=== PATIENT | male | born 1980 | race African-American/Black ===

== ENCOUNTER 2017-03-13 02:02 | Emergency (ER) | payer SELFPAY ==
--- NOTE | 2017-03-13 02:29 | ED NURSING NOTES ---
Clinical Report - Nurses [place] [address] [place] [address] 03/13/2017 2:03 [id number] Triage time 02:Mar 13 2017. Acuity: LEVEL 4. Chief Complaint: (Clear to book). SEPSIS SCREEN: Sepsis Screen: negative. Negative (no infection suspected/documented). ISAI COMA SCORE: Isai Coma Scale: 15- eyes open spontaneously (4); best verbal response- oriented x 4 (5); best motor response- obeys commands (6). --02:09 Miriam Plunkett 02:05 03/13/17. BP: 134/91. HR: 87. RR: 20. O2 saturation: 96% on room air. Temp: 98.1 F (oral). Pain level now: 0/10. --02:09 Miriam Plunkett. Weight: 117.9 kg stated. Height/Length: 75 inches Per Patient. BMI: 32.5. --02:06 Miriam Plunkett. Medications None. --02:06 Miriam Plunkett. Allergies No Known Drug Allergy. --02:06 Miriam Plunkett. History Historian: patient. Arrived in police custody and accompanied by police. This started just prior to arrival. ( Patient brought in by police. Police report patient blood alcohol level requires medical evaluation.). PAST MEDICAL HX: Immunizations: up-to-date. SOCIAL HX: Light tobacco smoker (cigarette)- less than 1/2 a pack per day. Occasional alcohol use. No drug use. No infectious disease exposure. ABUSE ASSESSMENT: No report of abuse. SELF HARM ASSESSMENT: A self harm assessment was performed. The patient answered "no" to the question "Have you recently felt down, depressed, or hopeless?", "Have you noticed less interest or pleasure in doing things?", "Do you have thoughts of harming or killing yourself?", "Are you here because you tried to hurt yourself?", "Have you ever tried to hurt yourself before today?", "Have you recently had thoughts about harming or killing others?" and "Do you have any dangerous items in your possession?". FALL RISK ASSESSMENT: Fall risk assessment completed. No fall risk identified. NUTRITIONAL RISK ASSESSMENT: The nutritional risk assessment revealed no deficiencies. FUNCTIONAL ASSESSMENT: Functional assessment: no impairments noted. LEARNING NEEDS ASSESSMENT: The learning needs assessment revealed no barriers. SKIN INTEGRITY ASSESSMENT: Skin integrity risk assessment completed. No skin integrity risk identified. --02:09 Miriam Plunkett. PROBLEMS: no known problems. ADDITIONAL SURGERIES: no known surgeries. Interventions ID band on patient. To treatment room. --02:09 Miriam Plunkett. PHYSICAL ASSESSMENT Ambulatory to room. GENERAL / NEURO / PSYCH: Alert. Oriented X 4. Appears in no acute distress. HEENT: No facial asymmetry noted. Mucous membranes are pink. RESPIRATORY: Respirations not labored. CVS: Normal sinus rhythm noted. GI / : Abdomen soft and nontender and normal bowel sounds. SKIN: Skin is warm and dry. --02:10 Miriam Plunkett. NURSING PROGRESS NOTES Reassurance given to the patient. Two patient identifiers checked. Call light placed in reach. Side rails up x 1. Bed placed in lowest position. Brakes of bed on. Patient ready for evaluation- chart flagged and ED physician notified. --02:10 Miriam Plunkett. DISPOSITION / DISCHARGE Condition at departure: stable. The goals identified in the patient's plan of care were met. No learning barriers present. Discharge instructions provided and reviewed with the patient. Patient verbalized understanding. Written instructions provided in Bel[place]ian. ( Patient advised to follow up with his PCP for assessment of his blood pressure. Patient verbalized understanding. Patient left in police custody.). The patient was discharged by the physician. He was discharged to police department facility. He left the Emergency Department ambulatory and via police department vehicle. ( Provider has cleared patient for discharge). FALL RISK ASSESSMENT: Fall risk assessment completed. No fall risk identified. --02:35 Miriam Plunkett 02:33 03/13/17. BP: 140/90. --02:35 Miriam Plunkett. Locked/Released at 03/13/2017 3:44 by Miriam Plunkett,
--- NOTE | 2017-03-13 02:29 | ED CLINICAL REPORT ---
Clinical Report - Physicians/Mid Levels [facility] [address] [place] [address] 03/13/2017 2:03 Patient: FANG VELA Time Seen: 0200. Arrived- Police present. Historian- patient. HISTORY OF PRESENT ILLNESS Chief Complaint: clear to book. At its maximum, severity described as mild. When seen in the E.D., severity described as mild. Modifying factors. Not worsened by anything. Not relieved by anything. This started today. It was abrupt in onset and has been constant but is gone now or not gone now. No current or associated symptoms. (Patient reports no pain or injury at this time. Patient states that he feels well. Nose no concerns. Patient reports no injury to the head, neck, chest, pelvis, back, or other extremities.). Similar symptoms previously: None. Recent medical care: Not recently seen/assessed. REVIEW OF SYSTEMS No fever, abdominal pain, nausea, vomiting or headache. All systems otherwise negative, except as recorded above. PAST HISTORY See nurses notes. Problems: no known problems. Additional Surgeries: no known surgeries. Medications: None. Allergies: No Known Drug Allergy. SOCIAL HISTORY Smoker- current status unknown. Occasional alcohol use. No drug use. No recent travel. Is a local resident. ADDITIONAL NOTES The nursing notes have been reviewed. PHYSICAL EXAM Vital Signs: 03/13/2017 02:05 BP: 134/91. HR: 87. RR: 20. O2 saturation: 96%. Temp: 98.1 F. Pain level now: 0/10. Blood pressure normal. Oxygen saturation normal. Appearance: Alert. No acute distress. (Polite. Cooperative. Appropriate). Eyes: Pupils equal, round and reactive to light. Eyes normal inspection. No scleral icterus or pale conjunctivae. ENT: Ears normal. Nose normal. Pharynx normal. Neck: Normal inspection. Neck supple. CVS: Normal heart rate and rhythm. Heart sounds normal. Pulses normal. Respiratory: No respiratory distress. Breath sounds normal. Chest nontender. No rales, rhonchi or wheezes. Abdomen: No visible injury. Soft and nontender. Bowel sounds normal. Skin: Skin warm and dry. Normal skin color. No rash. Normal skin turgor. Extremities: Extremities exhibit normal ROM. No lower extremity edema. Neuro: Oriented X 3. No motor deficit. No sensory deficit. PROGRESS AND PROCEDURES Course of Care: the patient is a 37-year-old male presenting for evaluation of needing to be cleared to book. Patient is resting in bed in no acute distress. No pain. Patient is appropriate. Patient does not appear impaired. Patient reports no injury at this time or other concerns. Because the patient is clinically sober, do not feel patient requires further emergency department workup or evaluation. Patient is steady on his feet without assistance. Had discussion with the patient in regards his workup in the emergency department with a diagnosis, home care, follow-up, and return precautions. All questions have been answered. The patient expressed understanding of these instructions and was agreeable to them. Disposition: Discharged. Condition: good. CLINICAL IMPRESSION 03/13/2017 02:05 BP: 134/91. HR: 87. RR: 20. O2 saturation: 96%. Temp: 98.1 F. Pain level now: 0/10. Hypertensive. Oxygen saturation normal. Normal exam while in the ED. Essential hypertension. INSTRUCTIONS (patient is cleared to book from an emergency department stand point). Warnings: GENERAL WARNINGS: Return or contact your physician immediately if your condition worsens or changes unexpectedly, if not improving as expected, or if other problems arise. Specifically return if pain, vomiting, bleeding, breathing difficulty or fever. Your Current Medications: CONTINUE TAKING THE FOLLOWING MEDICATIONS: None*. Follow-up: Return to the emergency department as needed. Follow up with your doctor in three days. Reason for referral: recheck today's concerns. Summary of care provided to patient via paper. Screening today revealed the patient's blood pressure to be in the normal range. The patient should follow up with a primary care provider for blood pressure management. Understanding of the discharge instructions verbalized by patient. (Electronically signed by Power Dupree Dr. 03/13/2017 7:29)
--- NOTE | 2017-03-13 07:30 | ED MAR SUMMARY ---
..... Medication Administration Record [facility] [address] [place] [address] Patient: FANG VELA Visit ID: [id number] 37y, M Weight: 117.9 kg Height/Length: 75 in BMI: 32.5 ALLERGIES: No Known Drug Allergy
--- NOTE | 2017-03-13 07:30 | ED MED RECONCILIATION SUMMARY ---
Patient: FANG VELA Medication Reconciliation Report [facility] VisitID: [id number] [address] [place] [address] 37y, M Registration Date/Time: 03/13/2017 Weight: 117.9 kg Height/Length: 75 in. BMI: 32.5 ALLERGIES: No Known Drug Allergy The patient's Home Medications are listed below: NONE. The source(s) of the original Home Medication information: Not obtained. The following Medications were given to the patient in the Emergency Department: None. The following Medications were prescribed to the patient: None.
--- NOTE | 2017-03-13 07:30 | ED DISCHARGE INSTRUCTIONS ---
Patient: FANG VELA General Instructions [facility] VisitID: [id number] [place] [address] 37y, M Registration Date/Time: 03/13/2017 03/13/2017 02:05 BP: 134/91. HR: 87. RR: 20. O2 saturation: 96%. Temp: 98.1 F. Pain level now: 0/10. Hypertensive. Oxygen saturation normal. Normal exam while in the ED. Essential hypertension. INSTRUCTIONS (patient is cleared to book from an emergency department stand point). Warnings: GENERAL WARNINGS: Return or contact your physician immediately if your condition worsens or changes unexpectedly, if not improving as expected, or if other problems arise. Specifically return if pain, vomiting, bleeding, breathing difficulty or fever. Your Current Medications: CONTINUE TAKING THE FOLLOWING MEDICATIONS: None*. Follow-up: Return to the emergency department as needed. Follow up with your doctor in three days. Reason for referral: recheck today's concerns. Summary of care provided to patient via paper. Screening today revealed the patient's blood pressure to be in the normal range. The patient should follow up with a primary care provider for blood pressure management. Understanding of the discharge instructions verbalized by patient. ADDITIONAL INFORMATION Normal Exam [6Yr - Adult] Based on your or your child's exam today, there are no signs of illness or injury. Be assured that the symptoms that worried you are normal. They do not suggest any illness requiring testing or treatment at this time. Home Care: You (or your child) can return to normal activities and diet. If you or your child have new or unusual symptoms not already discussed today, contact the doctor. Follow Up with the doctor for the next routine appointment. For more information: For childrens health information: www.kidshealth.org For adult health information: www.[facility].org High Blood Pressure -- To Be Confirmed [No Tx] Your blood pressure was higher today than normal. Sometimes anxiety or pain can cause a temporary rise in blood pressure that later returns to normal. If your blood pressure is high on one measurement, this does not mean that you have hypertension (a chronic illness). However, you must have your blood pressure measured again within the next few days to find out if its still high. A normal blood pressure is 120/80 or less. The first (top) number is the "systolic" pressure. The second (bottom) number is the "diastolic" pressure. Hypertension exists when either the top number is 140 or higher, OR the bottom number is 90 or higher on repeated measurements. Blood pressure in the range of 120-140 (systolic) or 80-89 (diastolic) is considered "pre-hypertension". This means your are at risk for getting hypertension. You should have regular blood pressure checks to be sure your blood pressure is not rising. Home Care: Measure your blood pressure on 3 different days and write down the results. This can be done at your doctor's office or this facility. Some pharmacies and grocery stores offer automated blood pressure machines for your use. Follow Up: If your blood pressure is "high" (over 120/80) on 2 out of 3 days, you will need to follow up with your doctor for further evaluation and treatment. DO NOT PUT THIS OFF! Untreated high blood pressure increases the risk for heart attack, also known as acute myocardial infarction, or AMI, and stroke. It is a treatable condition. Get Prompt Medical Attention if any of the following occur: Chest pain or shortness of breath Severe headache Throbbing or rushing sound in the ears Nosebleed Sudden severe abdominal pain Extreme drowsiness, confusion or fainting Dizziness or vertigo (dizziness with spinning sensation) Weakness of an arm or leg or one side of the face Difficulty with speech or vision You have been given the following additional information: Normal Exam, (Child) (Adult) Hypertension, To Be Confirmed (Electronically signed by Power Dupree Dr. 03/13/2017 7:29)
--- NOTE | 2017-03-13 07:30 | ED MAR SUMMARY ---
..... Medication Administration Record [facility] [address] [place] [address] Patient: FANG VELA Visit ID: [id number] 37y, M Weight: 117.9 kg Height/Length: 75 in BMI: 32.5 ALLERGIES: No Known Drug Allergy
--- NOTE | 2017-03-13 07:30 | ED MED RECONCILIATION SUMMARY ---
Patient: FANG VELA Medication Reconciliation Report [facility] VisitID: [id number] [address] [place] [address] 37y, M Registration Date/Time: 03/13/2017 Weight: 117.9 kg Height/Length: 75 in. BMI: 32.5 ALLERGIES: No Known Drug Allergy The patient's Home Medications are listed below: NONE. The source(s) of the original Home Medication information: Not obtained. The following Medications were given to the patient in the Emergency Department: None. The following Medications were prescribed to the patient: None.
== END 2017-03-13 02:35 ==
LOC: ED SRH 02:02
DX: Z02.89 Encounter for other administrative examinations (principal); R03.0 Elevated blood-pressure reading, without diagnosis of hypertension